=== PATIENT | female | born 1985 ===

== ENCOUNTER 2017-06-10 11:39 | Emergency (ER) | payer OTHER ==
[2017-06-10] MEDS ORDERED: Adenosine 6 MG/2 ML VIAL ONE (11:46)
[2017-06-10 12:17] LABS: #Basophils 0.1 thou/uL (0.0-0.2); #Eosinphils 0.1 thou/uL (0.0-0.7); #Lymphocytes 2.2 thou/uL (1.20-3.40); #Monocytes 0.6 thou/uL (0.11-0.59); #Neutrophils 6.6 thou/uL (1.40-6.50); %Basophils 1.2 % (0.0-1.0); %Eosinophils 0.6 % (0.0-10.0); %Lymphocytes 22.7 % (21.0-51.0); Hematocrit 38.4 % (36.0-47.0); Mean Platelet Volume 7.4 fL (7.4-10.4); Red Blood Cell (RBC) Count 4.39 mill/uL (4.20-5.40); White Blood Cell (WBC) Count 9.5 thou/uL (4.8-10.8)
[2017-06-10 12:41] LABS: ALT (SGPT) 31 U/L (8-55); AST (SGOT) 26 U/L (5-34); Alkaline Phosphatase 30 U/L (40-150); Anion Gap 10 mmol/L (10-20); BUN (Urea Nitrogen) 14 mg/dL (7.0-18.7); Bilirubin, Total 0.4 mg/dL (0.2-1.2); Calc. Creatinine Clearance 0 mL/min (70-130); Calcium 8.8 mg/dL (7.8-10.44); Carbon Dioxide 27 mmol/L (22-29); Chloride 105 mmol/L (98-107); Estimated GFR-MDRD 80; Globulin 2.4 g/dL (2.4-3.5); Protein, Total 6.5 g/dL (6.0-8.3)
--- NOTE | 2017-06-10 13:14 | RAD ---
PORTABLE CHEST: History: Headache. Hypertension. FINDINGS: Lungs are clear. Heart and mediastinum unremarkable. There is a questioned nodular density overlying the left midlung field. This is not adequately evaluated on this portable projection. Follow up PA an d lateral views of chest recommended. IMPRESSION: 1. No acute finding. 2. Question nodular density overlying the left midlung. Follow up PA and lateral views recommended el ectively. POS: [facility]
== END 2017-06-10 13:15 | disposition home or self-care (01) ==
LOC: ERS 11:39
DX: I47.1 Supraventricular tachycardia (principal); E03.9 Hypothyroidism, unspecified; F41.9 Anxiety disorder, unspecified; F32.9 Major depressive disorder, single episode, unspecified
CPT/HCPCS: 71010; 80053; 85025; 93005; J0153